=== PATIENT | male | born 1990 | race Caucasian/White ===

== ENCOUNTER 2020-07-22 10:18 | Emergency (ER) | payer OTHER, SELFPAY ==
--- NOTE | 2020-07-22 10:26 | XR_ITS ---
WS: [id number] Exam: XR chest 1V portable [id number] Date/Time of Exam: 07/22/2020 10:39 AM Reason For Exam: syncope Findings: The lungs are clear and fully expanded. Costophrenic angles are sharp. No infiltrates. Bronchovascula r relief appears normal. Cardiac silhouette is unremarkable. Bony elements are intact. XR/XR chest 1V portable [id number] IMPRESSION: Unremarkable chest radiograph.
[2020-07-22 10:32] VITALS: BP 165/104; PULSE 83; RESP 16; TEMP 36.8; O2SAT 99; BMI 23.3
--- NOTE | 2020-07-22 10:38 | ED_ITS ---
HPI - COVID General: Chief Complaint: COVID symptoms Stated Complaint: chest tightness, COVID + Time Seen by Provider: 07/22/20 10:23 Triage information: Has fever, cough or shortness of breath . Exposure to COVID + person last 14 days History of Present Illness: HPI Narrative: 30-year-old male patient presents to the emergency department with shortness of breath. Reports symptoms of COVID-19 illness x11 days. Reports tested +8 days ago. States past 2 to 3 days, increased shortness of breath. He reports shortness of breath with exertion, complaints of heaviness in the chest, worse with cough, he reports rest alleviates symptoms. He states continued fever with exception of today. Continues with [id number] ibuprofen as needed for fever, decreases temp. he denies nausea vomiting diarrhea. Reports continued cough, nonproductive. Denies hemoptysis. Blood pressure recheck with appropriate size cuff 131/91 complaint: known COVID positive Prior covid testing: yes, results known (Completed at [facility]) Prior testing date: 07/14/20 COVID 19 common symptoms: positive fever(s), chills, non-productive cough, dyspnea, fatigue, body aches and nasal congestion; negative headache(s), throat pain, nausea, vomiting or diarrhea COVID 19 other sytmptoms: positive chest pressure and chest pain ( pressure with cough) Onset (ago): week(s) (11) Severity: moderate Treatment prior to arrival: none COVID Results: No Data to Display Review of Systems General: Reports: 10 or more systems reviewed and unremarkable except in HPI and below Const: Reports: fever(s), chills, body aches, fatigue and malaise Eyes: Denies: blurry vision or eye redness ENMT: Reports: nasal discharge and nasal congestion; Denies: throat pain, uvular edema, oral sores, epistaxis or sinus pain Card: Reports: chest pain ( pressure with cough) and dyspnea on exertion; Denies: palpitations, irregular heart rhythm, edema, swelling of feet/ankles or orthopnea Resp: Reports: dyspnea, non-productive cough and chest congestion; Denies: wheezing GI: Denies: abdominal pain, nausea, vomiting, diarrhea or GI cramping : Denies: difficulty urinating, dysuria or urinary urgency Musc: Denies: neck pain or back pain Skin/Breast: Denies: rash or pruritus Neuro: Denies: headache(s), weakness in extremities or behavioral changes Psych: Denies: anxiety or depression Mahamed/Lymph: Denies: easy bruising PFSH ED PFSH: Social History (Updated 07/22/20 @ 10:37 by Arian Coker RN) Smoking and tobacco status: never smoked Alcohol intake: never Substance/Drug Use: never Physical Exam Const: COMMON NORMALS: no acute distress, patient oriented x3, healthy appearing and alert GENERAL APPEARANCE: cooperative, comfortable and well hydrated HENMT: COMMON NORMALS: normocephalic, Normal external nose present and moist oral mucous membranes HEAD & SCALP: normocephalic NOSE: Normal external nose present THROAT: no uvular edema Eye: COMMON NORMALS: Equal, round and reactive pupils present and EOMs intact bilaterally GENERAL EYE: appearance normal, both eyes and all related structures PUPIL: Yes Equal, round and reactive pupils present Neck/C-Spine: COMMON NORMALS: full ROM and no lymphadenopathy GENERAL: Yes normal visual inspection and Yes trachea midline CERVICAL SPINE: Yes cervical ROM normal Lymph: LYMPHATIC: no lymphadenopathy noted Chest: COMMONS NORMALS: normal inspection of the chest and normal palpation of entire chest wall CHEST: No localized rib tenderness with anteroposterior compression Resp: COMMON NORMALS: normal respiratory effort and clear to auscultation bilaterally EFFORT & INSPECTION: Yes able to speak in complete sentences, Yes symmetric chest movement, No paradoxical thoraco-abdominal movements and No tracheal deviation AUSCULTATION: clear to auscultation bilaterally and diminished lung sounds bilateral Cardio: COMMON NORMALS: regular rhythm, S1 normal heart sound present, S2 normal heart sound present and Peripheral pulses 2+ throughout RHYTHM: regular rhythm HEART SOUNDS: S1 normal heart sound present and S2 normal heart sound present PERIPHERAL PULSES: Peripheral pulses 2+ throughout GI: COMMON NORMALS: Normal to inspection, nondistended, normoactive bowel sounds present, Soft to palpation and non-tender INSPECTION: Yes normal to inspection PALPATION: Yes Soft to palpation : COMMON NORMALS: Yes no CVA tenderness BLADDER/KIDNEY EXAM: Yes no CVA tenderness Back/Pelvis: COMMON NORMALS: no CVA tenderness, thoracic and lumbar spine normal to inspection and no thoracic nor lumbar tenderness Extremity: COMMON NORMALS: normal to inspection and capillary refill normal Neuro: COMMON NORMALS: patient oriented x3 and no focal motor deficits SEN SORIUM/ORIENTATION: Yes alert SPEECH: speech normal GAIT: Yes Normal gait present Psych: COMMON NORMALS: mental status grossly normal, Normal thought process present and cooperative ACTIVITY/MOTOR BEHAVIOR: Yes appropriate eye contact THOUGHT PROCESS: Normal thought process present Skin: COMMON NORMALS: no rashes or lesions noted and turgor normal GENERAL SKIN EXAM: no rashes or lesions noted and turgor normal Course ED course: 30-year-old male patient presents to the emergency department with onset shortness of breath chest heaviness, worse with exertion, improves with rest. Positive Covid testing completed at [facility], 07/14/2020. Oxygen saturation remained 100% during his stay in the ED. Chemistry unremarkable, troponin not elevated, six, D-dimer less than 0.27, chest x-ray with Covid findings, negative for infiltrate suggestive of pneumonia. Radiology interpretation pending. EKG did not reveal ST elevation or findings suggestive of pericarditis. Home oxygen monitor device was prescribed to the patient in the ED with instructions how to use the device. Advised to return to the ED if oxygen saturation falls below 92%. Verbalized understanding. Patient advised to remain in quarantine, advised to remain at home with frequent need to rest due to symptoms and disease course. Disease course discussed with the patient. Advised to follow-up with his primary care physician in 2 to 3 days for work release. Case discussed Dr. Castañeda, EKG reviewed, CXR, and serology results - no new orders/change to plan; results /findings d/w the patient - questions were answered. Vital Signs: Vital signs: Vital Signs Temperature 98.3 F 07/22/20 10:32 Pulse Rate 87 07/22/20 10:56 Respiratory Rate 18 07/22/20 10:56 Blood Pressure 135/91 07/22/20 10:56 Pulse Oximetry 99 07/22/20 10:57 MDM - COVID Differential Diagnosis Differential diagnosis: Likely COVID 19 and pneumonia Lab Data Result diagrams: 07/22/20 10:45 07/22/20 10:45 Labs: Lab Results 07/22/20 07/22/20 07/22/20 Range/Units 10:45 10:45 10:45 WBC 6.4 (4.0-10.0) 10^3/uL RBC 5.30 (4.1-5.3) 10^6/uL Hgb 15.2 (11.7-16.6) g/dL Hct 45.5 (42.0-52.0) % MCV 85.8 (80-94) fL MCH 28.7 (28.0-34.0) pg MCHC 33.4 (30.0-36.0) g/dL RDW 12.0 L (12.1-15.1) % Plt Count 336 (130-400) 10^3/cmm MPV 9.8 (7.4-10.4) fL Neut % (Auto) 63.9 % Lymph % (Auto) 28.0 % [place] % (Auto) 5.6 % Eos % (Auto) 1.7 % Baso % (Auto) 0.6 % Neut # (Auto) 4.12 (1.8-7.7) 10^3/uL Lymph # (Auto) 1.8 (0.8-4.8) 10^3/uL [place] # (Auto) 0.4 (0.2-0.9) 10^3/uL Eos # (Auto) 0.1 (0.0-0.8) 10^3/uL Baso # (Auto) 0.0 (0.0-0.1) 10^3/uL Nucleated RBC % (auto) 0 % Nucleated RBCs # 0.0 /100WBC D-Dimer <= 0.27 (0-0.59) ug/mIFEU Sodium 139 (136-145) mmol/L Potassium 3.8 (3.5-5.1) mmol/L Chloride 103 (98-107) mmol/L Carbon Dioxide 24 (22-29) mmol/L Anion Gap 15.8 (5-19) BUN 8 (6-20) mg/dL Creatinine 0.9 (0.7-1.2) mg/dL GFR Calculation 99.8 (90-130) mL/min Glucose 125 H (65-115) mg/dL Calculated Osmolality 288 (285-295) mOsm/kg Calcium 9.9 (8.5-10.5) mg/dL Total Bilirubin 0.4 (0.15-1.2) mg/dL AST 14 (0-40) U/L ALT 11 (0-41) U/L Alkaline Phosphatase 64 (40-130) IU/L Troponin T Gen 5 ng/L (0-15) ng/L Total Protein 7.5 (6.6-8.7) g/dL Albumin 5.1 (3.5-5.2) g/dL Globulin 2.4 (1.3-4.6) g/dL 07/22/20 Range/Units 10:45 WBC (4.0-10.0) 10^3/uL RBC (4.1-5.3) 10^6/uL Hgb (11.7-16.6) g/dL Hct (42.0-52.0) % MCV (80-94) fL MCH (28.0-34.0) pg MCHC (30.0-36.0) g/dL RDW (12.1-15.1) % Plt Count (130-400) 10^3/cmm MPV (7.4-10.4) fL Neut % (Auto) % Lymph % (Auto) % [place] % (Auto) % Eos % (Auto) % Baso % (Auto) % Neut # (Auto) (1.8-7.7) 10^3/uL Lymph # (Auto) (0.8-4.8) 10^3/uL [place] # (Auto) (0.2-0.9) 10^3/uL Eos # (Auto) (0.0-0.8) 10^3/uL Baso # (Auto) (0.0-0.1) 10^3/uL Nucleated RBC % (auto) % Nucleated RBCs # /100WBC D-Dimer (0-0.59) ug/mIFEU Sodium (136-145) mmol/L Potassium (3.5-5.1) mmol/L Chloride (98-107) mmol/L Carbon Dioxide (22-29) mmol/L Anion Gap (5-19) BUN (6-20) mg/dL Creatinine (0.7-1.2) mg/dL GFR Calculation (90-130) mL/min Glucose (65-115) mg/dL Calculated Osmolality (285-295) mOsm/kg Calcium (8.5-10.5) mg/dL Total Bilirubin (0.15-1.2) mg/dL AST (0-40) U/L ALT (0-41) U/L Alkaline Phosphatase (40-130) IU/L Troponin T Gen 5 ng/L 6 (0-15) ng/L Total Protein (6.6-8.7) g/dL Albumin (3.5-5.2) g/dL Globulin (1.3-4.6) g/dL COVID Results: No Data to Display EKG Data EKG 1: EKG interpretation date: 07/22/20 EKG interpretation time: 10:39 Computer generated interpretation: Sinus rhythm, nonspecific ST and T wave abnormality, borderline ECG Discharge Plan Discharge Patient Disposition: Home Clinical Impression: COVID-19, Acute bronchitis, viral Condition: Stable Prescriptions: New Ventolin HFA 90 mcg/actuation HFA aerosol inhaler 2 puff INHALATION Q4H PRN (Reason: shortness of breath or wheezing) Qty: 18 RF: 0 Discharge Orders: Discharge Order (Routine); Ordered 07/22/20 Ordered By: Janett Cortez Referrals: Wes Schuler Jr, MD [Primary Care Provider] - Discharge Diet: Usual diet Discharge Activity: Limit activity as instructed Patient Instructions: Acute Bronchitis (ED), Viral Syndrome (ED) Activity Restrictions/Additional Instructions: Return to the emergency department if you develop increased shortness of breath, inability to catch your breath, coughing up blood, or other worsening symptoms Rest at home until symptoms are improved. You will need to rest, avoid vigorous activity until better Follow-up with your primary care physician in 2 to 3 days for reevaluation Monitor your oxygen saturation, if oxygen saturation falls below 92%, return to the emergency department. Stand Alone Forms: Work/School Release Discharge Date/Time: 07/22/20 12:06 Coding Level of Care Code ED Carpenter Maintenance for Chg Fwd Exam Comprehensive
[2020-07-22 10:56] VITALS: BP 135/91; PULSE 87; RESP 18; O2SAT 99
[2020-07-22 10:57] VITALS: O2SAT 99
[2020-07-22] MEDS: dexamethasone 4 mg Tablet 10 MG PO (11:12)
[2020-07-22 11:19] LABS: Basophils % 0.6 %; Eosinophils # 0.1 10^3/uL (0.0-0.8); Eosinophils % 1.7 %; Hematocrit 45.5 % (42.0-52.0); Hemoglobin 15.2 g/dL (11.7-16.6); Lymphocytes # 1.8 10^3/uL (0.8-4.8); Mean Corpuscular HGB Conc 33.4 g/dL (30.0-36.0); Mean Corpuscular Hemoglobin 28.7 pg (28.0-34.0); Mean Corpuscular Volume 85.8 fL (80-94); Mean Platelet Volume 9.8 fL (7.4-10.4); Monocytes # 0.4 10^3/uL (0.2-0.9); Monocytes % 5.6 %; Neutrophils # 4.12 10^3/uL (1.8-7.7); Neutrophils % 63.9 %; Nucleated Red Blood Cells % 0 %; Platelet Count 336 10^3/cmm (130-400); White Blood Count 6.4 10^3/uL (4.0-10.0)
[2020-07-22 11:24] LABS: D Dimer <= 0.27 ug/mIFEU (0-0.59)
[2020-07-22 11:34] LABS: Alanine Aminotransferase 11 U/L (0-41); Albumin Level 5.1 g/dL (3.5-5.2); Alkaline Phosphatase 64 IU/L (40-130); Anion Gap 15.8 (5-19); Aspartate Amino Transferase 14 U/L (0-40); Blood Urea Nitrogen 8 mg/dL (6-20); Calcium 9.9 mg/dL (8.5-10.5); Carbon Dioxide 24 mmol/L (22-29); Chloride 103 mmol/L (98-107); Globulin 2.4 g/dL (1.3-4.6); Glomerular Filtration Rate 99.8 mL/min (90-130); Glucose 125 mg/dL (65-115); Osmolality Calculated 288 mOsm/kg (285-295); Potassium 3.8 mmol/L (3.5-5.1); Sodium 139 mmol/L (136-145); Total Bilirubin 0.4 mg/dL (0.15-1.2); Total Protein 7.5 g/dL (6.6-8.7)
[2020-07-22 11:35] LABS: Troponin T (5th) Once 6 ng/L (0-15)
[2020-07-22 12:03] VITALS: BP 134/95; PULSE 64; RESP 18; TEMP 37.2; O2SAT 98
--- NOTE | 2020-07-22 14:11 | ECG_ITS ---
[facility] Test Date: 2020-07-22 Pat Name: Nuno Morgan Department: Room: Gender: Male [employer] Installer: : 1990 Requested By: Janett Jerez Order Number: [id number] Anthony MD: KASSY WILBURN Measurements Intervals [place] Rate: 77 P: 66 UT: 191 QRS: 81 QRSD: 92 T: 40 QT: 372 QTc: 422 Interpretive Statements SINUS RHYTHM NONSPECIFIC ST & T-WAVE ABNORMALITY No previous ECG available for comparison Electronically Signed On 07-22-2020 21:05:57 CDT by KASSY WILBURN [email or web address]
--- NOTE | 2020-07-23 09:30 | DCPLANNER ---
security operations manager had message to speak with patient about follow up appointment for patient with his primary care. security operations manager called [facility], a follow up appointment was scheduled fro Sunday, July 26, 2020 at 8:30 with BIOMEDICAL MANAGER, Katie New. security operations manager called patient and informed patient of the scheduled appointment.
--- NOTE | 2020-08-25 14:32 | DCPLANNER ---
Patient had a follow up appointment scheduled for 07.26.20 with [facility] - patient did attend appointment.
== END 2020-07-22 12:06 | disposition home or self-care (01) ==
PROVIDERS: Emergency Provider Nurse Practitioner Family; PCP Pediatrics Adolescent Medicine
DX: U07.1 COVID-19 (principal); J20.8 Acute bronchitis due to other specified organisms
CPT/HCPCS: 12345; 71045; 80053; 84484; 85025; 85378; 93005; 99283; J8540

== ENCOUNTER → 2022-04-24 15:53 | Outpatient (BNVA) | payer OTHER, SELFPAY | PROVIDERS: PCP Clinical Nurse Specialist Adult Health; Visit Provider Clinical Nurse Specialist Adult Health | DX: M54.9 Dorsalgia, unspecified (principal) | CPT/HCPCS: 81000 ==

== ENCOUNTER → 2023-06-15 12:20 | Outpatient (BNVA) | payer BC, SELFPAY | PROVIDERS: PCP Clinical Nurse Specialist Adult Health; Visit Provider Clinical Nurse Specialist Adult Health | DX: Z00.00 Encounter for general adult medical examination without abnormal findings (principal); N41.9 Inflammatory disease of prostate, unspecified; R10.30 Lower abdominal pain, unspecified; K21.9 Gastro-esophageal reflux disease without esophagitis | CPT/HCPCS: 80053; 84153; 84403; 85025 ==

== ENCOUNTER → 2025-01-22 09:34 | Outpatient (BNVA) | payer BC, SELFPAY | PROVIDERS: PCP Clinical Nurse Specialist Adult Health; Visit Provider Clinical Nurse Specialist Adult Health | DX: Z00.00 Encounter for general adult medical examination without abnormal findings (principal) | CPT/HCPCS: 80053; 80061; 85025 ==